=== PATIENT | male | born 1990 | race Caucasian/White ===

== ENCOUNTER 2024-05-05 08:42 | Emergency (ER) | payer OTHER ==
[2024-05-05 08:52] VITALS: BP 108/73; PULSE 63; RESP 18; TEMP 97.8; BMI 26.6
[2024-05-05] MEDS ORDERED: IBUPROFEN 600 MG TABLET (FP) PO ONE (09:25)
[2024-05-05] MEDS: IBUPROFEN 600 MG TABLET (FP) PO ONE (09:27)
== END 2024-05-05 09:28 | disposition home or self-care (01) ==
LOC: JERFT 08:42
DX: S39.012A Strain of muscle, fascia and tendon of lower back, initial encounter (principal); X50.9XXA Other and unspecified overexertion or strenuous movements or postures, initial encounter
CPT/HCPCS: 99283-25